=== PATIENT | male | born 1970 | race Caucasian/White ===

== ENCOUNTER 2022-12-27 08:03 | Outpatient (CLI) | payer BC, SELFPAY ==
[2022-12-27 08:33] LABS: Basophils Absolute Auto 0.02 K/mm3 (0.00-0.10); Basophils Percent Auto 0.4 % (0.0-1.0); Eosinophils Absolute Auto 0.17 K/mm3 (0.02-0.50); Eosinophils Percent Auto 3.5 % (1.0-6.0); Hematocrit 44.3 % (40.0-54.0); Hemoglobin 14.5 g/dL (14.0-18.0); Immature Granulocyte Absolute 0.02 K/mm3 (0.00-0.00); Immature Granulocyte Percent A 0.4 % (0.0-0.0); Lymphocytes Absolute Auto 0.98 K/mm3 (1.10-4.50); Mean Corpuscular HGB Conc 32.7 g/dL (32.0-36.0); Mean Corpuscular Hemoglobin 29.6 pg (27.0-31.0); Mean Corpuscular Volume 90.4 fL (78.0-102.0); Mean Platelet Volume 9.9 fl (8.7-11.0); Monocytes Absolute Auto 0.44 K/mm3 (0.10-0.90); Neutrophils Absolute Auto 3.3 K/mm3 (1.7-7.2); Neutrophils Percent Auto 66.7 % (50.0-70.0); Platelet Count Result 152 K/mm3 (150-420); Red Cell Distribution Width 13.3 % (11.6-14.4); White Blood Count 4.9 K/mm3 (4.8-10.8)
[2022-12-27 08:48] LABS: Hemoglobin A1C 5.4 % (<5.7)
[2022-12-27 09:27] LABS: Alanine Aminotransferase 49 U/L (16-63); Albumin Level 3.7 g/dL (3.4-5.0); Alkaline Phosphatase 77 U/L (46-116); Anion Gap 6 mmol/L (8-16); Aspartate Amino Transferase 33 U/L (15-37); Bilirubin,Total 0.3 mg/dL (0.00-1.00); Blood Urea Nitrogen 12 mg/dL (7-18); Calcium 8.8 mg/dL (8.5-10.1); Carbon Dioxide 29 mmol/L (21-32); Chloride 108 mmol/L (98-108); Cholesterol 177 mg/dL (0-200); Estimated Glomerular Filt Rate > 60; Glucose 111 mg/dL (70-99); HDL Direct 44 mg/dL (40-60); LDL Cholesterol Calculated 112 mg/dL (<130); Osmolality Calculated 296 mOsm/kg (285-295); Potassium 4.5 mmol/L (3.5-5.1); Prostate Specific Antigen 0.4 ng/mL (< OR = 4.0); Sodium 143 mmol/L (136-145); Thyroid Stimulating Hormone 2.99 uIU/mL (0.36-3.74); Total Protein 6.7 g/dL (6.4-8.2); Triglycerides 103 mg/dL (0-150)
== END 2022-12-27 08:04 | disposition home or self-care (01) ==
LOC: CHSLAB 08:07
PROVIDERS: PCP Family Medicine; Visit Provider Family Medicine
DX: E66.9 Obesity, unspecified (principal); Z12.5 Encounter for screening for malignant neoplasm of prostate
CPT/HCPCS: 36415; 80053; 80061; 83036; 84153; 84443; 85025; G0103

== ENCOUNTER 2024-02-02 01:04 | Day surgery (SDC) | payer BC, SELFPAY ==
[2024-01-19 13:27] VITALS: BMI 44.9
[2024-02-02 08:14] VITALS: BP 161/69; PULSE 45; RESP 18; TEMP 36.1; O2SAT 100
[2024-02-02] MEDS: LACTATED RINGERS 1,000 ML 150 ML IV CONT (08:29)
--- NOTE | 2024-02-02 08:34 | WPDANESEPPF ---
Anes - Initial Pre Proc Eval Procedure: Operation Date: 02/02/24 09:30 Proposed Procedures p Screening Colonoscopy - Qasim Love MD Date/Time: 02/02/24 08:34 Surgeon: Qasim Love MD Pre Op Diagnosis: neoplasm screening Patient Data Age: 53 Gender: M Height: 1.85 m Weight: 152.1 kg Last Vital Signs Temp 97 F L 02/02/24 08:14 Pulse 45 L 02/02/24 08:14 Resp 18 02/02/24 08:14 BP 161/69 H 02/02/24 08:14 Pulse Ox 100 02/02/24 08:14 O2 Del Method Room Air 02/02/24 08:14 Allergies Allergy/AdvReac Type Severity Reaction Status Date / Time No Known Allergies Allergy Mild Unverified 01/19/24 13:27 Home Medications Medication Instructions Recorded Confirmed Type levocetirizine 5 mg tablet (Xyzal) 5 mg PO DAILY 01/19/24 02/02/24 History semaglutide (weight loss) 1 mg/0.5 1 mg subcut WEEKLY 01/19/24 02/02/24 History mL subcutaneous pen injector (Wegovy) Patient hx anesthesia problems: none Family hx anesthesia problems: none Results Review: All pre-operative results and documents have been reviewed as part of the pre-operative evaluation. [facility] Family History Family History (Updated 02/23/16 @ 23:21 by DOCTOR UNKNOWN) Father Patient's father is in good health Sibling Patient's sister is in good health Patient's brother is in good health Mother Family history of diabetes mellitus in first degree relative Social History Social History Smoking packs per day: 1 Smoking cigarettes per day: 20.0 Years smoked: 30 Smoking pack-years: 30.00 Smoking status: Current every day smoker Tobacco type: cigarettes and e-cigarettes/vaping Additional smoking assessment comments: STARTED VAPING IN 2013- CONTINUES NOW Alcohol intake: current Drinks per week: 2 Alcohol use details: BEERS Substance use: never Substance use type: does not use Living arrangements: with family Spiritual care concerns: No Anes - Eval Final PreProcedure Day of Procedure 02/02/24 08:34 Patient weight: morbidly obese Heart: bradycardia Lungs: clear to auscultation Airway: Mallampati scale class III Neurological: alert and oriented Last oral intake: >/= 8 hours ASA classification: III Emergent: no Anesthetic plan: proceed Anesthesia type and monitoring: general GIVS and standard monitoring Results Review: All pre-operative results and documents have been reviewed as part of the pre-operative evaluation. Informed Consent: The patient's anesthetic plan and its attendant risks and benefits were discussed with the patient/family/POA. Questions were solicited and answers provided to the satisfaction of the patient/family/POA.
--- NOTE | 2024-02-02 08:54 | PM.HPGS ---
History of Present Illness History of Present Illness Consent: Risks, benefits, and alternatives have been discussed and questions answered. Patient agrees to proceed with procedure. Chief complaint: neoplasm screening Narrative: Ronaldo Bland is a 53 year old male here for screening colonoscopy, had one about 15 years ago Review of Systems Review of Systems: All systems reviewed & are unremarkable except as noted in HPI and below PMFSH Past Medical History Medical History (Updated 02/02/24 @ 08:55 by Qasim Love MD) Colon cancer screening Family History Family History (Updated 02/23/16 @ 23:21 by DOCTOR UNKNOWN) Father Patient's father is in good health Sibling Patient's sister is in good health Patient's brother is in good health Mother Family history of diabetes mellitus in first degree relative Social History Social History Smoking packs per day: 1 Smoking cigarettes per day: 20.0 Years smoked: 30 Smoking pack-years: 30.00 Smoking status: Current every day smoker Tobacco type: cigarettes and e-cigarettes/vaping Additional smoking assessment comments: STARTED VAPING IN 2013- CONTINUES NOW Alcohol intake: current Drinks per week: 2 Alcohol use details: BEERS Substance use: never Substance use type: does not use Living arrangements: with family Spiritual care concerns: No Meds Home Medications and Allergies Home Medications Medication Instructions Recorded Confirmed Type levocetirizine 5 mg tablet (Xyzal) 5 mg PO DAILY 01/19/24 02/02/24 History semaglutide (weight loss) 1 mg/0.5 1 mg subcut WEEKLY 01/19/24 02/02/24 History mL subcutaneous pen injector (Wegovy) Allergies Allergy/AdvReac Type Severity Reaction Status Date / Time No Known Allergies Allergy Mild Unverified 01/19/24 13:27 Vital Signs Vital Signs - 24 hr 02/02/24 08:14 Temperature 97 F L Pulse Rate 45 L Respiratory Rate 18 Blood Pressure 161/69 H Pulse Oximetry 100 Oxygen Delivery Room Air Exam Const: General: comfortable and no acute distress HENMT: Face/Nose/Sinus: Normal nares present Eyes: General: appearance normal, both eyes and all related structures Neck: Neck: no JVD Resp: Auscultation: clear to auscultation bilaterally Cardio: Rate: regular rate Rhythm: regular rhythm GI: Inspection: non-distended GI Palp: Yes Soft to palpation Skin: General skin exam: normal color Neuro: General: gait normal Speech: normal speech Extrem: General: normal to inspection Psych: Mental Status: mental status grossly normal Assessment and Plan Assessment and plan (1) Colon cancer screening: Code(s): Z12.11 - Encounter for screening for malignant neoplasm of colon Status: Acute Assessment and Plan: colonoscopy
[2024-02-02 09:16] VITALS: BP 89/45; PULSE 45; RESP 22; O2SAT 99
[2024-02-02 09:26] VITALS: BP 114/60; PULSE 43; RESP 16; O2SAT 98
[2024-02-02 09:36] VITALS: BP 118/54; PULSE 41; RESP 15; O2SAT 97
== END 2024-02-02 09:41 | disposition home or self-care (01) ==
PROVIDERS: PCP Family Medicine; Visit Provider Internal Medicine Gastroenterology
PROC: 0DJD8ZZ Inspection of Lower Intestinal Tract, Via Natural or Artificial Opening Endoscopic (ICD-10-PCS; CPT 45378; principal; 2024-02-02 09:30)
DX: Z12.11 Encounter for screening for malignant neoplasm of colon (principal); K63.5 Polyp of colon; F17.210 Nicotine dependence, cigarettes, uncomplicated; F17.290 Nicotine dependence, other tobacco product, uncomplicated; E66.01 Morbid (severe) obesity due to excess calories; Z68.41 Body mass index [BMI] 40.0-44.9, adult; Z79.85 Long-term (current) use of injectable non-insulin antidiabetic drugs
CPT/HCPCS: 45385; 88305; J2704; J7120

== ENCOUNTER 2024-10-28 10:44 | Emergency (ER) | payer BC, SELFPAY ==
--- NOTE | ~2024-10-28 | XR_ITS ---
EXAMINATION: XR hip LT min 3V w AP pelvis DATE: 10/28/2024 11:20 INDICATION: Nontraumatic left hip pain and difficulty with weightbearing TECHNIQUE: Anteroposterior view of the pelvis and anteroposterior and frog-leg lateral views of the l eft hip were obtained. COMPARISON: None. FINDINGS: Bone alignment is normal. No fracture or suspected osteonecrosis. Relatively symmetric appearing mild bilateral hip and sacroiliac osteoarthritis. Severe lower lumbar spondylosis with transitional lumbo sacral segment. IMPRESSION: 1. Mild left hip osteoarthritis. No acute osseous abnormality. Reviewed, dictated and finalized at location A.
[2024-10-28 10:55] VITALS: BP 175/83; PULSE 60; RESP 18; TEMP 36.4; O2SAT 98
--- OUTSIDE RECORDS SUMMARY | 2024-10-28 11:32 | XMS_ITS | Clinical Summary ---
Author Organization [facility] [place] Address [address] [place] [id number] Care Team Providers Care Content Editor Name Role Phone Osei Feliz MD Primary Care Provider Social History Tobacco Use Types Packs/Day Years Used Date Smoking Tobacco: Never Assessed Sex and Gender Information Value Date Recorded Sex Assigned at Not on file Legal Sex Male 7:38 PM CDT Gender Identity Not on file Sexual Orientation Not on file Plan of Treatment Health Maintenance Due Date Last Done Comments Colorectal Cancer Screening Colonoscopy (10 Years) 1971 Annual Physical 1974 Hepatitis C 1989 Hepatitis B Vaccines (1 of 3 - 19+ 3-dose series) 1990 Zoster Vaccines (2 of 2) 04/14/2023 02/17/2023 COVID-19 Vaccine ( season) 2024 11/07/2021, 06/11/2021, 10/20/2020, Additional history exists Influenza Adult (#1) 2024 08/28/2022 DTaP, Tdap and Td Vaccines (3 - Td or Tdap) 02/11/2026 02/12/2016, 12/11/2011 Meningococcal B Vaccine Aged Out No l onger eligible based on patient's age to complete this topic Meningococcal Vaccine Aged Out No kevin cordell eligible based on patient's age to complete this topic Pneumococcal Vaccine: Pediatrics (0 to 5 Years) and At-Risk Patients (6 to 64 Years) Aged Out No longer eligible based on patient's age to complete this topic RSV Immunizations Under 20 Months Aged Out No longer eligible based on patient's age to complete this topic Insurance [facility] Care Teams Content Editor Relationship Specialty Start Date End Date Osei Feliz MD [address] [place] [phone] PCP - General FAMILY PRACTICE 03/04/23
--- NOTE | 2024-10-28 12:36 | ED.EXTPRO ---
HPI - Extremity Problem General Chief complaint: Extremity Problem,Nontraumatic Stated complaint: left hip pain Time Seen by Provider: 10/28/24 11:09 Source: patient Mode of arrival: ambulatory Limitations: no limitations History of Present Illness HPI Narrative: Patient is a 54-year-old male who presents the ED with report of left hip pain. Patient reports he has been having increased pain in his left hip for the past 7-10 days. Denies any fall or injury. States the pain is really only present when he attempts to ambulate or bear weight on his left leg. Has been using crutches for assistance with ambulation. Took ibuprofen for a couple of days but denies improvement. Denies numbness in the leg, back pain, bowel or bladder incontinence, swelling of lower extremity. Related Data Home Medications ?Medication ?Instructions ?Recorded ?Confirmed ?Last Taken ?Type levocetirizine 5 mg tablet (Xyzal) 5 mg PO DAILY 01/19/24 02/02/24 Unknown History semaglutide (weight loss) 1 mg/0.5 1 mg subcut WEEKLY 01/19/24 02/02/24 Unknown History mL subcutaneous pen injector (Wegovy) Allergies Allergy/AdvReac Type Severity Reaction Status Date / Time No Known Allergies Allergy Mild Verified 10/28/24 10:44 Review of Systems Review of Systems: All systems reviewed & are unremarkable except as noted in HPI. All systems reviewed & are unremarkable except as noted in HPI and below PMFSH Past Medical History Medical History Colon cancer screening Family History Family History Father Patient's father is in good health Sibling Patient's sister is in good health Patient's brother is in good health Mother Family history of diabetes mellitus in first degree relative Social History Social History Smoking packs per day: 1 Smoking cigarettes per day: 20.0 Years smoked: 30 Smoking pack-years: 30.00 Smoking status: Current every day smoker Tobacco type: cigarettes and e-cigarettes/vaping Additional smoking assessment comments: STARTED VAPING IN 2013- CONTINUES NOW Alcohol intake: current Drinks per week: 2 Alcohol use details: BEERS Substance use: never Substance use type: does not use Living arrangements: with family Spiritual care concerns: No Exam Narrative: GENERAL: Well appearing, morbidly obese with BMI of 45.4, non-toxic, in no acute distress. HEAD: Normocephalic, atraumatic. RESPIRATORY: Airway patent, respirations nonlabored. CARDIOVASCULAR: Regular rate and rhythm MUSCULOSKELETAL: Moves all extremities. No gross deformities. Full range of motion of left hip flexion extension without significant pain. No significant tenderness to palpation over left hip joint. Sensation intact throughout extremity. No lower extremity edema. SKIN: Warm, dry, normal color. NEURO: A&O X3. Speech clear. Steady gait. No ataxic movements. PSYCHIATRIC: Appropriate mood and affect. Normal interaction. Course Vital Signs Vital signs: Vital Signs Temperature 97.6 F 10/28/24 10:55 Pulse Rate 60 10/28/24 10:55 Respiratory Rate 18 10/28/24 10:55 Blood Pressure 175/83 H 10/28/24 10:55 Pulse Oximetry 98 10/28/24 10:55 Oxygen Delivery Room Air 10/28/24 10:55 Temperature 97.6 F 10/28/24 10:55 Pulse Rate 60 10/28/24 10:55 Respiratory Rate 18 10/28/24 10:55 Blood Pressure 175/83 H 10/28/24 10:55 Pulse Oximetry 98 10/28/24 10:55 Oxygen Delivery Room Air 10/28/24 10:55 MDM - Extremity (Nontraumatic) MDM Narrative Medical decision making narrative: Patient?s injury is consistent with musculoskeletal etiology. No signs of neurologic or vascular compromise on physical examination. Compartments are soft without signs of compartment syndrome. XR of left hip/pelvis showing mild osteoarthritis. No fracture. Pain is consistent with exam and injury. Patient is felt to be stable for discharge home and further outpatient management and treatment. No evidence of DVT. Low suspicion for sciatic type pain, no evidence of cord compression or cauda equina. Discussed rice therapy, continuing NSAIDs. Will prescribe short course of muscle relaxers for home use. Will refer to orthopedics for further evaluation. Discussed return precautions. Patient in agreement with plan. Discharged in stable condition. Medical Records Attestation: I reviewed the patient's medical records. Imaging Data Attestation: I personally reviewed and interpreted this imaging study as follows: Radiologist's impression: ITS Impressions Hip/Pelvis X-Ray 10/28/24 11:33 IMPRESSION: 1. Mild left hip osteoarthritis. No acute osseous abnormality. Discharge Plan Discharge Clinical Impression: Strain of left hip Qualifiers: Encounter type: initial encounter Qualified Code(s): S76.012A - Strain of muscle, fascia and tendon of left hip, initial encounter Osteoarthritis of left hip Qualifiers: Osteoarthritis type: unspecified Qualified Code(s): M16.12 - Unilateral primary osteoarthritis, left hip Patient Disposition: Home, Self-Care Condition: Stable Instructions: Antibiotic Form, Osteoarthritis (ED), Hip Sprain (ED) Additional Instructions: Your imaging here showed evidence of osteoarthritis of your hips. Continue Tylenol and Ibuprofen as needed for pain. You may use ice to hip, elevated leg as able. Utilize tramadol as needed for more severe pain. Take muscle relaxers as needed and prescribed. Recommend taking these at night as they may cause sedation. Do not drive, operate heavy machinery, drink alcohol while on muscle relaxers as this may cause further sedation. Follow-up with your primary care doctor and orthopedics for further evaluation. Call office to make appointment. Return to the ED if you experience worsening or severe pain, injury, numbness in groin or legs, going to the bathroom without meaning to, swelling of leg, or any other symptoms of concern. Patient Language: Malagasy Prescriptions: New tramadol 50 mg tablet 50 mg PO Q6H PRN (Reason: pain) Qty: 6 0RF cyclobenzaprine 5 mg tablet 5 mg PO TID PRN (Reason: muscle spasm) Qty: 15 0RF No Action levocetirizine [Xyzal] 5 mg Tablet 5 mg PO DAILY Wegovy 1 mg/0.5 mL Pen Injector 1 mg SUBCUT WEEKLY Rx Instructions: administer weeks 9 through 12 of therapy Follow-up/Referrals: Gildardo Amezquita MD [Physician] - (ORTHOPEDICS) Tray,MD Osei [Primary Care Provider] - Time of Disposition: 12:44
[2024-10-28] MEDS: CYCLOBENZAPRINE HCL 5 MG TABLET PO (13:03)
[2024-10-28] MEDS: KETOROLAC (*BKC) 60 MG/2 ML VIAL IM (13:05)
[2024-10-28 13:33] VITALS: BP 159/85; PULSE 48; RESP 16; O2SAT 97
== END 2024-10-28 13:36 | disposition home or self-care (01) ==
PROVIDERS: Emergency Provider Physician Assistant; PCP Family Medicine
DX: S76.012A Strain of muscle, fascia and tendon of left hip, initial encounter (principal); M16.12 Unilateral primary osteoarthritis, left hip; F17.210 Nicotine dependence, cigarettes, uncomplicated; X58.XXXA Exposure to other specified factors, initial encounter
CPT/HCPCS: 73502; 96372; 99283; A9270; J1885

== ENCOUNTER 2024-11-04 16:54 | Outpatient (RCR) | payer BC, SELFPAY ==
--- NOTE | 2024-11-04 17:52 | OPREHPOC ---
Outpatient Therapy Plan of Care This is a Multidisciplinary Plan of Care that may contain components documented by all disciplines (PT, OT, and ST.) PT Problem 1 PT Problem #1 Knowledge Deficit PT Goal 1 Goal / Goal Update independent and compliant with HEP Target Visit 4 PT Problem 2 PT Problem #2 Pain PT Goal 1 Goal / Goal Update patient to report no more than 1/10 pain in the L lateral hip in the last week Target Visit 8 PT Problem 3 PT Problem #3 Impaired Strength PT Goal 1 Goal / Goal Update 5/5 bilateral hip abd 5/5 bilateral hip ext Target Visit 8 PT Problem 4 PT Problem #4 Impaired Flexibility PT Goal 1 Goal / Goal Update mild or less tightness of the bilateral hip flexors mild or less bilateral quad tightness 25 degrees or less bilateral hamstrings tightness per the 90/90 test Target Visit 8 PT Problem 5 PT Problem #5 Impaired Functional Mobility PT Goal 1 Goal / Goal Update LEFS to display 20% or less functional deficits patient to ambulate 15 minutes without pain in the L hip Target Visit 8
--- NOTE | 2024-11-04 17:52 | PTOPEVAL1 ---
Assessment and note entered by JT File, PT Evaluation Information Assessment Status Evaluation Diagnosis L hip bursitis ICD-10 Condition Codes (PT) Pain in low back M54.50,Pain in left hip M25.552 Onset 10/18/24 Subjective Information patient reports he is having pain in the L hip. he reports the pain is on the side of the L hip and at times going around the front some. he reports initially he thought he might have pulled a muscle , but as it settled it has stayed on the outside of the L hip. he reports xrays in the ER display OA in the L hip. he reports ortho did not feel the OA in the L hip was the root cause of these symptoms. he did have an injection, and just finished a dose pack today. he reports he is a little worried how he will begin to feel now that his dose pack is gone. 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 he reports he cannot pin point a specific injury, but reports it did begin around the time he was putting some deer hunting gear away in his garage. he reports a small amount of tingling if he is sitting for too long that goes all the way down the L LE. he reports walking increases his hip pain, and reports he is beginning to get pain in the L knee. Reported Pain Level Pain Score 1: Self Report Assessment PT Clinical Summary mr. lyons is a 54 yo man who presents to skilled PT services for evaluation and treatment of L lateral hip pain. he presents with signs and symptoms consistent with L greater trochanteric bursitis. he presents with L lateral hip tenderness, L hip abd weakness, antalgic gait, and mm tightness. continued skilled PT is indicated to improve his objective/functional deficits and progress towards a return to his prior level functional activity performance/quality of life. Plan of Care Interventions Electrical Stimulation,Gait Training,Hot Pack/Cold Pack,Manual Therapy,Neuro Re-education,Patient/ Caregiver Education,Therapeutic Activities, Therapeutic Exercise PT Services Indicated Yes Treatment Frequency and 2x weekly for 8 visits Duration These treatments will address the objective and functional deficits as defined above. The patient will be advanced safely and appropriately in order for the patient to progress towards his/her prior level of function. Additional exercises will be introduced and as well as a comprehensive home exercise program upon discharge, if needed, ?to ensure carryover of functional gains achieved in the clinic. This treatment plan has been reviewed and agreement upon by the patient.
== END 2025-02-02 23:59 | disposition home or self-care (01) ==
LOC: CHSPT 16:54
PROVIDERS: Visit Provider Orthopaedic Surgery
DX: M25.552 Pain in left hip (principal); M70.62 Trochanteric bursitis, left hip; M54.50 Low back pain, unspecified
CPT/HCPCS: 97014; 97110; 97140; 97161; G0283